=== PATIENT | female | born 1990 | race Caucasian/White ===

== ENCOUNTER 2018-08-13 06:09 | Day surgery (SDC) | payer OTHER ==
[~2018-08-13] VITALS: Ht 152.4 cm; Wt 81.6 kg
[2018-08-13 06:29] VITALS: BP 113/60
[2018-08-13 13:20] VITALS: BP 105/49
== END 2018-08-13 10:50 | disposition home or self-care (01) ==
LOC: DS 06:09 → OR 07:30 → DS 07:30 → OR 08:30 → DS 10:50
PROVIDERS: Obstetrics & Gynecology
PROC: 0UDB7ZZ Extraction of Endometrium, Via Natural or Artificial Opening (ICD-10-PCS; 2018-08-13)
PROC: 0UBC7ZX Excision of Cervix, Via Natural or Artificial Opening, Diagnostic (ICD-10-PCS; principal; 2018-08-13 07:30)
DX: N87.1 Moderate cervical dysplasia (principal)
CPT/HCPCS: C1758; J0690; J2405; J2704; J3010; J7120